=== PATIENT | male | born 1990 | race Two or more races ===

== ENCOUNTER 2017-09-06 13:13 | Emergency (ER) | payer BC ==
[2017-09-06 13:31] VITALS: BP 123/80; PULSE 99; TEMP 98.9; BMI 24.8
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
== END 2017-09-06 16:19 | disposition home or self-care (01) ==
LOC: FER 13:13
DX: B34.9 Viral infection, unspecified (principal)
CPT/HCPCS: 87070; 87077; 87430; 87804; 99282-25